=== PATIENT | male | born 1960 | race Caucasian/White ===

== ENCOUNTER → 2019-02-26 | Day surgery (SDC) | payer OTHER ==
[~2019-02-26] MED LIST: LIDOCAINE 2% JELLY 5 ML TUBE ONE
== END ==
LOC: END 07:44
PROVIDERS: ATTEND Internal Medicine Gastroenterology
DX: R13.10 Dysphagia, unspecified (principal); K44.9 Diaphragmatic hernia without obstruction or gangrene; R12 Heartburn